=== PATIENT | male | born 1950 | race Caucasian/White ===

== ENCOUNTER 2018-12-12 11:01 | Emergency (ER) | payer MEDICARE, BC, OTHER ==
[2018-12-12] MEDS: HYDROCODONE/APAP (5/325) TAB PO (12:24)
[2018-12-12] MEDS: IBUPROFEN 600 MG TAB PO (12:24)
== END 2018-12-12 14:00 | disposition home or self-care (01) ==
LOC: FTE 11:01
DX: S52.531A Colles' fracture of right radius, initial encounter for closed fracture (principal); E11.9 Type 2 diabetes mellitus without complications; S00.211A Abrasion of right eyelid and periocular area, initial encounter; S00.81XA Abrasion of other part of head, initial encounter; R94.02 Abnormal brain scan; W01.198A Fall on same level from slipping, tripping and stumbling with subsequent striking against other object, initial encounter; Y92.096 Garden or yard of other non-institutional residence as the place of occurrence of the external cause
CPT/HCPCS: 29125; 70450; 70486; 73110-RT; 73130-RT; 99284-25